=== PATIENT | male | born 1970 | race Caucasian/White ===

== ENCOUNTER 2019-07-16 01:08 | Outpatient (CLI) | payer BC, SELFPAY ==
[2019-07-16 07:36] LABS: HCT 46.6 % (40.0-50.0); HGB 15.9 g/dL (13.5-17.5); Mean Corp. HGB Concentration 34.1 g/dL (32.0-36.0); Mean Corpuscular Hemoglobin 31.4 pg (27.0-33.0); Mean Corpuscular Volume 92.1 fL (80-95); Mean Platelet Volume 10.2 fL (8.0-11.0); Platelet Count 301 x1000/uL (130-400); RBC 5.06 m/cumm (4.50-6.00); RBC Distribution Width 12.2 % (11.8-14.1); White Blood Cell Count 4.27 k/cumm (4.4-10.8)
[2019-07-16 09:10] LABS: ALT 23 U/L (16-63); AST 19 U/L (15-37); Albumin 4.1 g/dL (3.4-5.0); Alkaline Phosphatase 77 U/L (46-116); Anion Gap 7.2 mmol/L (3-11); BUN 12 mg/dL (7-18); Bilirubin, Total 0.5 mg/dL (0.2-1.0); CO2 29.8 mmol/L (21.0-32.0); CREATININE 0.85 mg/dL (0.70-1.30); Calcium 9.4 mg/dL (8.5-10.1); Chloride 104 mmol/L (98-107); Glucose 100 mg/dL (70-100); Potassium 4.7 mmol/L (3.5-5.1); Sodium 141 mmol/L (136-145); Total Protein 7.3 g/dL (6.4-8.2)
[2019-07-16 10:03] LABS: Cholesterol 258 mg/dL (50-200); HDL Cholesterol 49 mg/dL (40-60); LDL CHOLESTEROL 183 mg/dL (<100); Triglyceride 78 mg/dL (30-150)
[2019-07-17 09:39] LABS: PSA, Screening 0.3 ng/ml (0-3.5)
== END 2019-07-16 01:28 ==
PROVIDERS: PCP Nurse Practitioner; Visit Provider Surgery
DX: E78.5 Hyperlipidemia, unspecified (principal); G43.909 Migraine, unspecified, not intractable, without status migrainosus; Z12.5 Encounter for screening for malignant neoplasm of prostate; Z80.42 Family history of malignant neoplasm of prostate
CPT/HCPCS: 36415; 80053; 83721; 84153; 85027; 82465; 83718; 84478

== ENCOUNTER 2019-07-27 06:13 | Day surgery (SDC) | payer BC, SELFPAY ==
[2019-07-27 06:19] VITALS: BP 107/71; PULSE 74; RESP 16; TEMP 36.6; O2SAT 95
[2019-07-27] MEDS: Lactated Ringers 1,000 ML 80 ML IV (06:49)
--- NOTE | 2019-07-27 08:36 | W.COLOREPORT ---
Date of service: 07/27/19 Time of Service: 08:36 Colonoscopy Report Date of procedure: 07/27/19 Pre-op diagnosis general: CRC screen Post-op diagnosis procedure note: other (mod-severe diverticula) Procedure: colon screen Surgeon: Marta Mcguire Anesthesia proc note operative: GETA Estimated blood loss (mL): 0 Pathology: none sent Complications: None Disposition: same day Prep: Miralax/Dulcolax Retraction Time: 15 mins Procedure Description: After informed consent was obtained the patient was taken to the procedure room and placed in a left decubitous position. Monitors were applied and a time out was done. The patients name, date of , procedure, allergies to medications and metal in their body was reviewed. The patient was then sedated. Once sedated and comfortable a rectal exam was done. External exam was normal. Internal exam revealed a normal sphincter tone and no palpable masses. The scope was then introduced and retrofelexed. No internal hemorrhoids were identified. The scope was then advanced to the cecum w/out difficulty. The TI and appendiceal orifice were identified. The prep was good. The scope was then slowly retracted over 15 mins minutes back into the rectum. No polyps or AVMs were identified. He does have severe diverticular disease multiple large amount diverticula. These are confined to the sigmoid colon. There is no sign of active bleeding or infection at this time. The scope was removed and the patient was woken up and taken back to Same day surgery in stable condition. The patient tolerated the procedure well and there were no immediate complications. Follow up: The patient should follow up in 10 years unless they develop changes in bowel habits or other new gastrointestinal complaints.
[2019-07-27 08:57] VITALS: BP 110/76; PULSE 56; RESP 16; TEMP 36.3; O2SAT 96
== END 2019-07-27 09:10 | disposition home or self-care (01) ==
PROVIDERS: PCP Nurse Practitioner; Visit Provider Surgery
PROC: 0DJD8ZZ Inspection of Lower Intestinal Tract, Via Natural or Artificial Opening Endoscopic (ICD-10-PCS; CPT 45378; principal; 2019-07-27 07:30)
DX: Z12.11 Encounter for screening for malignant neoplasm of colon (principal); K57.30 Diverticulosis of large intestine without perforation or abscess without bleeding
CPT/HCPCS: 45378

== ENCOUNTER 2021-03-30 08:45 | Outpatient (REF) | payer BC, SELFPAY ==
[2021-03-30 19:21] LABS: HCT 47.4 % (40.0-50.0); HGB 15.7 g/dL (13.5-17.5); MCH 31.1 pg (27.0-33.0); MCHC 33.1 % (32.0-36.0); MCV 93.9 fL (80-95); MPV 10.8 fL (8.0-11.0); Platelet Count 304 10^3/uL (130-400); RBC 5.05 10^6/uL (4.36-5.78); RDW 11.9 % (11.8-14.1); RDW-SD 41.2 fL; WBC 4.75 10^3/uL (4.4-10.8)
[2021-03-30 19:40] LABS: ALT 32 U/L (16-63); AST 24 U/L (15-37); Albumin 4.2 g/dL (3.4-5.0); Alkaline Phosphatase 71 U/L (46-116); Anion Gap 7.5 mmol/L (3-11); BUN 19 mg/dL (7-18); Bilirubin, Total 0.5 mg/dL (0.2-1.0); CO2 29.5 mmol/L (21.0-32.0); CREATININE 0.8 mg/dL (0.70-1.30); Calcium 9.5 mg/dL (8.5-10.1); Calculated LDL 179 mg/dL (<100); Chloride 106 mmol/L (98-107); Cholesterol 244 mg/dL (<200); Glucose 93 mg/dL (74-106); HDL Cholesterol 45 mg/dL (40-60); Potassium 4.8 mmol/L (3.5-5.1); Sodium 143 mmol/L (136-145); Total Protein 7.2 g/dL (6.4-8.2); Triglyceride 103 mg/dL (<150)
== END 2021-03-30 08:46 | disposition home or self-care (01) ==
LOC: NCHCN 08:45
PROVIDERS: PCP Nurse Practitioner; Visit Provider Nurse Practitioner
DX: F32.9 Major depressive disorder, single episode, unspecified; E78.5 Hyperlipidemia, unspecified
CPT/HCPCS: 80053; 80061; 85027; 83735

== ENCOUNTER 2022-10-04 08:54 | Outpatient (REF) | payer BC, SELFPAY ==
[2022-10-04 15:56] LABS: Calculated LDL 195 mg/dL (<100); Cholesterol 273 mg/dL (<200); Glucose 97 mg/dL (74-106); HDL Cholesterol 57 mg/dL (40-60); Triglyceride 106 mg/dL (<150)
[2022-10-04 23:25] LABS: PSA, Screening 0.3 ng/mL (<=3.5)
== END 2022-10-04 08:55 | disposition home or self-care (01) ==
LOC: NCHCN 08:54
PROVIDERS: PCP Nurse Practitioner; Visit Provider Nurse Practitioner Family
DX: Z80.42 Family history of malignant neoplasm of prostate (principal); Z00.00 Encounter for general adult medical examination without abnormal findings; Z12.5 Encounter for screening for malignant neoplasm of prostate; E78.5 Hyperlipidemia, unspecified
CPT/HCPCS: 80061; 82947; 84153

== ENCOUNTER 2023-05-23 16:09 | Outpatient (REF) | payer BC, SELFPAY ==
[2023-05-23 19:24] LABS: ALT 35 U/L (16-63); AST 29 U/L (15-37); Creatine Kinase 155 U/L (39-308)
[2023-05-23 19:39] LABS: HDL Cholesterol 55 mg/dL (40-60); LDL CHOLESTEROL 122 mg/dL (<100)
== END 2023-05-23 16:10 | disposition home or self-care (01) ==
LOC: NCHCN 16:09
PROVIDERS: PCP Nurse Practitioner; Visit Provider Nurse Practitioner Family
DX: E78.5 Hyperlipidemia, unspecified (principal); F41.8 Other specified anxiety disorders
CPT/HCPCS: 82550; 83721; 83718; 84450; 84460

== ENCOUNTER 2023-10-01 14:39 | Outpatient (REF) | payer BC, SELFPAY ==
[2023-10-01 22:25] LABS: PSA, Screening 0.2 ng/mL (<=3.5)
== END 2023-10-01 14:40 | disposition home or self-care (01) ==
LOC: NCHCN 14:39
PROVIDERS: PCP Nurse Practitioner; Visit Provider Nurse Practitioner Family
DX: Z12.5 Encounter for screening for malignant neoplasm of prostate (principal); Z80.42 Family history of malignant neoplasm of prostate
CPT/HCPCS: 84153

== ENCOUNTER 2024-04-06 15:07 | Outpatient (REF) | payer BC, SELFPAY ==
[2024-04-06 20:16] LABS: ALT 57 U/L (16-63); AST 40 U/L (15-37); Albumin 4.2 g/dL (3.4-5.0); Alkaline Phosphatase 92 U/L (46-116); Anion Gap 5.5 mmol/L (3-11); BUN 18 mg/dL (7-18); Bilirubin, Total 0.24 mg/dL (0.2-1.0); CO2 30.5 mmol/L (21.0-32.0); CREATININE 1.1 mg/dL (0.70-1.30); Calcium 9.5 mg/dL (8.5-10.1); Chloride 105 mmol/L (98-107); Estimated GFR 78.79 (mL/min/1.73m2); Glucose 101 mg/dL (74-106); Potassium 4.8 mmol/L (3.5-5.1); Sodium 141 mmol/L (136-145); Total Protein 7.7 g/dL (6.4-8.2)
[2024-04-06 20:27] LABS: Hemoglobin A1C 5.7 % (<5.7)
== END 2024-04-06 15:08 | disposition home or self-care (01) ==
LOC: NCHCN 15:07
PROVIDERS: PCP Nurse Practitioner Family; Visit Provider Nurse Practitioner Family
DX: E78.5 Hyperlipidemia, unspecified (principal); Z13.1 Encounter for screening for diabetes mellitus
CPT/HCPCS: 80053; 83036

== ENCOUNTER 2024-10-12 18:11 | Outpatient (REF) | payer OTHER, SELFPAY ==
--- OUTSIDE RECORDS SUMMARY | 2024-10-12 18:17 | XMS_ITS | Encounter Summary ---
Author Organization [facility] Address [address] [place] [address] Care Team Providers Care Crane Engineer Name Role Phone Farzad Gautam MD Primary Care Provider [phone] Encounter Details Date Type Department Care Team (Late st Contact Info) Description 10/01/2023 Lab Requisition [facility] Pathology & Laboratory Medicine - [facility] [address], [place] [id number] Outr Resulting Lab, Provider Social History Tobacco Use Types Packs/Day Years Used Date Smoking Tobacco: Never Assessed Sex and Gender Information Value Date Recorded Sex Assigned at Not on file Legal Sex Male 18:20 EST Gender Identity Not on file Sexual Orientation Not on file documented as of this encounter Plan of Treatment Not on file documented as of this encounter Procedures Procedure Name Priority Date/Time Associated Diagnosis Comments PSA TOTAL, DIAGNOSTIC Routine 10/01/2023 8:10 EST documented in this encounter Results * PSA TOTAL, DIAGNOSTIC (10/01/2023 8:10 EST) PSA 0.2 <=3.5 ng/mL 10/01/2023 22:21 EST [facility] Blood VENOUS BLOOD / Unknown 10/01/2023 8:10 EST 10/01/2023 21:03 EST Narrative [facility] - 10/01/2023 22:21 EST NOTE: Serum PSA concentration should not be interpreted as absolute evidence for the presence or absence of malignant disease. Assayed on Siemens ADVIA Dexterraaur XPT using chemiluminescent technology.??Values obtained by using different assay methods cannot be used interchangeably. us Provider Outr Resulting Lab CHEMISTRY & BLOOD GA S ORDERABLES Final Result [facility] [address] [place] [address] documented in this encounter Visit Diagnoses Not on filedocumented in this encounter Care Teams Crane Engineer Relationship Specialty Start Date End Date Farzad Gautam MD [address] [place] [address] PCP - General 08/28/10 documented as of this encounter
--- OUTSIDE RECORDS SUMMARY | 2024-10-12 18:17 | XMS_ITS | Encounter Summary ---
Author Organization [facility] Address [facility] [place] [address] Care Team Providers Care Boat Officer Name Role Phone Jeanine Serna APRN Primary Care Provider Encounter Details Date Type Department Care Team (Late st Contact Info) Description 11/04/2018 External [place] [address] Provider, Scanning Social History Tobacco Use Types Packs/Day Years Used Date Smoking Tobacco: Never Smokeless Tobacco: Never Sex and Gender Information Value Date Recorded Sex Assigned at Not on file Gender Identity Not on file Sexual Orientation Not on file documented as of this encounter Plan of Treatment Not on file documented as of this encounter Procedures Procedure Name Priority Date/Time Associated Diagnosis Comments SURGICAL PATHOLOGY SCAN Routine 11/04/2018 documented in this encounter Results * Scan Doc: Surgical Pathology (11/04/2018) Historical Provider MD FARIA MGR SCAN EX T ORDR/RSLT documented in this encounter Visit Diagnoses Not on filedocumented in this encounter Care Teams Boat Officer Relationship Specialty Start Date End Date Jeanine Serna APRN [address] [place] [address] PCP - General Family Medicine 11/03/18 07/01/23 documented as of this encounter
--- OUTSIDE RECORDS SUMMARY | 2024-10-12 18:17 | XMS_ITS | Clinical Summary ---
Author Organization [facility] [place] [address] Care Team Providers Care Roller Man Name Role Phone Selin Knapp PIERCE Primary Care Provider [phone] Allergies No known active allergies Medications Medication Sig Dispensed Refills Start Date End Date Status loratadine (CLARITIN) 10 mg Tablet take 1 tablet by mouth once daily 0 10/13/2018 Active venlafaxine (EFFEXOR) 100 mg Tablet 0 08/09/2018 Active rosuvastatin (Crestor) 5 mg tablet Take 5 mg by mouth daily. 06/18/2023 Active FIBER, DEXTRIN, ORAL Take by mouth. Active pediatric multivit #34-FA 200 mcg Tablet, Chewable Take by mouth. Acti ve UNABLE TO FIND Mushroom gummy Active aspirin 81 mg chewable tablet Take 81 mg by mouth daily. Active Active Problems No known active problems Social History Tobacco Use Types Packs/Day Years Used Date Smoking Tobacco: Never Smokeless Tobacco: Never Sex and Gender Information Value Date Recorded Sex Assigned at Not on file Gender Identity Not on file Sexual Orientation Not on file Plan of Treatment Health Maintenance Due Date Last Done Comments CT Colonography 1968 Colonoscopy 1968 Colorectal Cancer Screening 1968 FIT DNA 1968 FIT 1968 Sigmoidoscopy (10 year) with FIT yearly 1968 Sigmoidoscopy 1968 HIV screen 02/04/1986 Hepatitis C Screening 02/04/1986 Hepatitis B vaccine (0-59 yrs) (1) 02/04/1987 Tetanus/Diphtheria/Pertussis Vaccines (1 - Tdap) 02/04 Zoster vaccine (1 of 2) 02/04/2018 Advance Directive 02/04/2023 Covid-19 Vaccine (1 - season) 2024 Influenza (Flu) vaccine (1 o f 1 - Influenza standard series) 05/31/2024 Care Teams Roller Man Relationship Specialty Start Date End Date Selin Knapp APRN PCP - General Family Medicine 07/02/23
--- OUTSIDE RECORDS SUMMARY | 2024-10-12 18:17 | XMS_ITS | Encounter Summary ---
Author Organization [facility] [place] [address] Care Team Providers Care Slubber Operator Name Role Phone Jeanine Serna APRN Primary Care Provider [phone] Reason for Visit * Reason Comments Follow-up Skin Check Encounter Details Date Type Department Care Team (Late st Contact Info) Description 11/03/2018 3:15 PM EST Office Visit Dermatology at [address] [phone] Shravan Boston MD [address] [facility] [place] [address] [place] (actinic keratosis); Chondrodermatitis nodularis helicis of right ear Social History Tobacco Use Types Packs/Day Years Used Date Smoking Tobacco: Never Smokeless Tobacco: Never Sex and Gender Information Value Date Recorded Sex Assigned at Not on file Gender Identity Not on file Sexual Orientation Not on file documented as of this encounter Progress Notes * Shravan Boston MD - 11/03/2018 3:15 PM EST Problem: 1. Right ear lesion 2. Right cheek lesion Maximo follows-up concerned about lesions present on his right cheek and right ear for some months now. The wound on his right helical rim is somewhat tender. One on his right cheek will occasionally bleed. When he shaves he cannot help but hit it. He has had a fair amount of sun exposure over the years. Physical examination reveals a pleasant 48-year-old gentleman who has a fleshy nodule extending anteriorly on the upper inner helical rim. It is 8 mm in diameter. It is consistent with CNH versus possible SCCA versus BCCA. He has an actinic keratosis on the right lateral cheek. Otherwise facial examination examination of his hands arms forearms chest and back is benign. 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 Discussed with patient the possibility of chondrodermatitis nodularis helicis and the underlyingetiology of this. 2. Discussed wound care after shave biopsy in light C&D 3. Try to keep pressure off of the site as it heals, as pressure usually seems to make it worse, and offloading pressure from the site, sleeping on his left side, will help to prevent its recurrence 4. Will notify patient of biopsy results when these are available within the next week. Actinic keratosis right cheek 1. LN 2 x 2 applied to single site Benign nevi back 1. Patient reassured about remainder benign skin examination benign nevi on back 2. No treatment necessary CC: Jeanine Serna APRN documented in this encounter Plan of Treatment Not on file documented as of this encounter Visit Diagnoses Diagnosis AK (actinic keratosis) Actinic keratosis Chondrodermatitis nodularis helicis of right ear documented in this encounter Care Teams Slubber Operator Relationship Specialty Start Date End Date Jeanine Serna APRN [address] [place] [address] PCP - General Family Medicine 11/03/18 07/01/23 documented as of this encounter
--- OUTSIDE RECORDS SUMMARY | 2024-10-12 18:17 | XMS_ITS | Encounter Summary ---
Author Organization [facility] Address [address] [place] [address] Care Team Providers Care Bologna Lacer Name Role Phone Unavailable Primary Care Provider Unavailabl e Encounter Details Date Type Department Care Team (Late st Contact Info) Description 08/23/2010 Results Only [facility] [place] [facility] [place] [place] [address] [place], [place] [phone] Erik Caldwell MD [address] [place] [id number] Social History Tobacco Use Types Packs/Day Years [...] Priority Date/Time Associated Diagnosis Comments SURGICAL PATHOLOGY Routine 08/23/2010 0:00 EST documented in this encounter Results * SURGICAL PATHOLOGY (08/23/2010 0:00 EST) Pathology Report: SURGICAL PATHOLOGY REPORT ? Reports generated via electronic interface contain original data; ? however they are lacking the format of the original report. ? Caution should be taken when reading/interpreti ng unformatted reports. ? Name: ? URIE, CIRA A ? Accession #: ? [id number] ? : ? 1970 (Age: 40) ??M ? Collect Date: ? 08/23/2010 ? Location: ? [facility] ? Receive Date: ? 08/23/2010 ? Provider: ERIK TIMA MD ? Copy to: MI VILLALTA MD ? Final Pathologic Diagnosis: ? A. ?Nasal turbinate, left, excision: ? 1. ?Bone fragments lined by chronically inflamed respiratory mucosa. ? B. ?Nasal turbinate, right, excision: ? 1. ?Bone fragments lined by chronically inflamed respiratory mucosa. ? C. ?Septal cartilage and bone, excision: ? 1. ?Bone and cartilage with no specific pathologic features. ??Gross ? only. ? Document reviewed and electronically signed by: ? ABDELSIMÓN RING MD ? Report ??Date: 08/28/2010 14:14 ? By the signature above, the attending physician certifies that he/she has ? personally conducted a gross and/or microscopic examination of the described ? specimens and rendered or confirmed the above diagnosis. ? Specimen(s) Received: ? A. ?Lt turbinate ? B. ? Rt turbinate ? C. ? Septal cartilage and bone ? Clinical History: ? DNS; B infer turbinate hypertrophy ? Gross Description: ? Received in formalin labelled Lefty, Cira and left turbinate are three ?? irregular and unoriented fragments of tissue that range from 0.8 x 0.6 x 0.5 cm to 1.9 x 0.9 x 0.8 cm. ??The fragments of tissue are largely surfaced by ? josue-son, smooth, focally hemorrhagic mucosa. ??Sectioning reveals a son, spongy cut surface, with foci of indwelling firm, bony tissue. ??Ophthalmic Asst sections are submitted as (A) following decalcification. ? Received in formalin labelled Cira Olea and right turbinate are two ? rectangular, unoriented pieces of tissue that measure 2.0 x 0.7 x 0.3 cm and 3.1 x 0.9 x 0.8 cm. ??The tissues are largely surfaced by son, focally hemorrhagic, ?? smooth to wrinkled mucosa. ??Sectioning reveals a son, spongy cut surface, with ?? focal areas of indwelling firm, bony tissue. ??Ophthalmic Asst sections are ? submitted as (B) following decalcification. ? Received in formalin labelled [place], Cira and septal cartilage and bone is a 3.0 x 2.2 x 0.6 cm aggregate of multiple irregular fragments of josue-white ? cartilaginous tissue admixed with scant fragments of firm, son, bony tissue. ??No masses or discrete lesions are identified. ??No sections are submitted. ??Gross ?? only. ??(Diana Casas)/hair ? End of Report ? [facility] 08/23/2010 08/23/2010 17: 42 EST us Erik Caldwell MD PATHOLOGY ORDERABLES Final Resul t [facility] [address] [place] [address] documented in this encounter Visit Diagnoses Not on filedocumented in this encounter
--- OUTSIDE RECORDS SUMMARY | 2024-10-12 18:17 | XMS_ITS | Encounter Summary ---
Author Organization [facility] Address [facility] [place] [address] Care Team Providers Care Property Developer Name Role Phone Jeanine Serna PIERCE Primary Care Provider [phone] Encounter Details Date Type Department Care Team (Latest Contact Info) Description 11/03/2018 9:23 PM EST - 11/03/2018 11:59 PM EST Hospital [place] [id number] Discharge Disposition: Home Social History Tobacco Use Types Packs/Day Years Used Date Smoking Tobacco: Never Smokeless Tobacco: Never Sex and Gender Information Value Date Recorded Sex Assigned at Not on file Gender Identity Not on file Sexual Orientation Not on file documented as of this encounter Medications at Time of Discharge Medication Sig Dispensed Refills Start Date End Date loratadine (CLARITIN) 10 mg Tablet take 1 tablet by mouth once daily 0 10/13/2018 venlafaxine (EFFEXOR) 100 mg Tablet 0 08/09/2018 amitriptyline (ELAVIL) 10 mg Tablet take 1 tablet by mouth at bedtime if needed 0 09/11/2018 07/02/2023 documented as of this encounter Plan of Treatment Not on file documented as of this encounter Procedures Procedure Name Priority Date/Time Associated Diagnosis Comments SURGICAL PATHOLOGY REPORT Routine 11/03/2018 12:00 PM EST documented in this encounter Results * Surgical Pathology Report (11/03/2018 12:00 PM EST) Final Diagnosis [id number] ? Location: [facility] The signing pathologist has (i) examined the relevant preparation(s) for the specimen(s) and (ii) rendered or confirmed the diagnosis(es). . ?Surgical Pathology DIAGNOSIS Skin, right upper inner helical rim, shave biopsy: - ??Chondrodermati tis nodularis helicis Electronically signed by: ??Donovan BARRERA, PhD, Radha Verified: ??11/04/2018 ?Dermatopatholo gist Performed at: ??[facility] [place], [place], [place] CLINICAL INFORMATION Specimen Submitted: A - Right upper inner helical rim, shave Clinical History and Diagnosis: Growing nodule; CNH R/O BCCa vs SCCa Referring Identifier: ?(not provided) SPECIMEN PROCESSING A - Labeled/Fixative : Patient demographics, formalin. Quantity/Size: ??Single, 1.0 x 0.6 x 0.2 cm. Tissue Description: Shave of rubbery son skin. Sections/Process ing: Inked, quadrisected and entirely submitted in 1 cassette labeled A1. ??dior 11/04/2018 2:13 PM EST [facility] SPECIMEN FROM SKIN / Unknown 11/03/2018 12:00 PM EST 11/03/2018 12:00 PM EST Shravan Boston MD PATHOLOGY/CYTOLOGY O CARMINE [facility] [place] [address] documented in this encounter Visit Diagnoses Not on filedocumented in this encounter Care Teams Property Developer Relationship Specialty Start Date End Date Jeanine Srena, HOT FRAME TENDER [address] [place] [address] PCP - General Family Medicine 11/03/18 07/01/23 documented as of this encounter
--- OUTSIDE RECORDS SUMMARY | 2024-10-12 18:17 | XMS_ITS | Encounter Summary ---
Author Organization [facility] Address [address] [place] [address] Care Team Providers Care Pony Edger Name Role Phone Unavailable Primary Care Provider Unavailabl e Encounter Details Date Type Department Care Team (Latest Contact Info) Description 12/14/2002 12:42 EST Hospital Encounter [facility] [place] [id number] [place] [address] Tamir Vasquez III, ANP [address] [place] [address] Discharge Disposition: Auto Discharge Social History Tobacco Use Types Packs/Day Years Used Date Smoking Tobacco: Never Assessed Sex and Gender Information Value Date Recorded Sex Assigned at Not on file Legal Sex Male 18:20 EST Gender Identity Not on file Sexual Orientation Not on file documented as of this encounter Discharge Disposition Disposition Code Departure Means Destination Auto Discharge documented in this encounter Plan of Treatment Not on file documented as of this encounter Visit Diagnoses Not on filedocumented in this encounter
--- OUTSIDE RECORDS SUMMARY | 2024-10-12 18:17 | XMS_ITS | Encounter Summary ---
Author Organization [facility] Address [address] [place] [address] Care Team Providers Care Youth Support Worker Name Role Phone Farzad Gautam MD Primary Care Provider [phone] Encounter Details Date Type Department Care Team (Late st Contact Info) Description 10/04/2022 Lab Requisition [facility] Pathology & Laboratory Medicine - [facility] [address], [place] [id number] Outr Resulting Lab, Provider Social History Tobacco [...] Associated Diagnosis Comments PSA TOTAL, DIAGNOSTIC Routine 10/04/2022 7:40 EST documented in this encounter Results * PSA TOTAL, DIAGNOSTIC (10/04/2022 7:40 EST) PSA 0.3 <=3.5 ng/mL 10/04/2022 23:21 EST [facility] Blood VENOUS BLOOD / Unknown 10/04/2022 7:40 EST 10/04/2022 21:34 EST Narrative [facility] - 10/04/2022 23:21 EST NOTE: Serum PSA concentration should not be interpreted as absolute evidence for the presence or absence of malignant disease. Assayed on Siemens ADVIA Conductoraur XPT using chemiluminescent technology.??Values obtained by using different assay methods cannot be used interchangeably. us Provider Outr Resulting Lab CHEMISTRY & BLOOD GA S ORDERABLES Final Result [facility] [address] [place] [address] documented in this encounter Visit Diagnoses Not on filedocumented in this encounter Care Teams Youth Support Worker Relationship Specialty Start Date End Date Farzad Gautam MD [address] [place] [address] PCP - General 08/28/10 documented as of this encounter
--- OUTSIDE RECORDS SUMMARY | 2024-10-12 18:17 | XMS_ITS | Clinical Summary ---
Author Organization [facility] Address [address] [place] [address] Care Team Providers Care Property Management Bookkeeper Name Role Phone Farzad Gautam MD Primary Care Provider [phone] Social History Tobacco Use Types Packs/Day Years Used Date Smoking Tobacco: Never Assessed Sex and Gender Information Value Date Recorded Sex Assigned at Not on file Legal Sex Male 18:20 EST Gender Identity Not on file Sexual Orientation Not on file Plan of Treatment Health Maintenance Due Date Last Done Comments Hepatitis C Screen 1970 Hepatitis B Vaccine (1 of 3 - 19+ 3-dose series) 02/04 COVID-19 Vaccine ( season) 2024 Care Teams Property Management Bookkeeper Relationship Specialty Start Date End Date Farzad Gautam MD [address] [place] [address] PCP - General 08/28/10
--- OUTSIDE RECORDS SUMMARY | 2024-10-12 18:17 | XMS_ITS | Encounter Summary ---
[place] [address] Care Team Providers Care Php Wordpress Developer Name Role Phone Selin Knapp APRN Primary Care Provider [phone] Encounter Details Date Type Department Care Team (Latest Contact Info) Description 07/02/2023 Travel Social History Tobacco Use Types Packs/Day Years [...] on filedocumented in this encounter Care Teams Php Wordpress Developer Relationship Specialty Start Date End Date Selin Knapp APRN PCP - General Family Medicine 07/02/23 documented as of this encounter
--- OUTSIDE RECORDS SUMMARY | 2024-10-12 18:17 | XMS_ITS | Encounter Summary ---
Author Organization [facility] Address [address] [place] [address] Care Team Providers Care Mule Developer Name Role Phone Unavailable Primary Care Provider Unavailabl e Encounter Details Date Type Department Care Team (Late st Contact Info) Description 12/22/2002 18:06 EST Hospital Encounter [facility] [address] [place] [address] Tamir Vasquez III, ANP [address] [place] [address] Social History Tobacco Use Types Packs/Day Years [...]
--- OUTSIDE RECORDS SUMMARY | 2024-10-12 18:17 | XMS_ITS | Encounter Summary ---
Author Organization [facility] [address] Care Team Providers Care Storage Brine Worker Name Role Phone Selin Knapp RETIREMENT [employer] Primary Care Provider [phone] Reason for Visit * Reason Comments Follow-up * Consultation (Routine) - Closed Specialty Diagnoses / Procedures Referred By Radha clark Referred To Contact Dermatology Diagnoses Melanocytic nevi, unspecified Selin Knapp, RETIREMENT ACTU[employer] [address] [place] [address] Shravan Boston MD [address] [place] [address], [facility] [place] [address] Referral ID Status Reason Start Date Expiration Date V isits Requested Visits Authorized [id number] Closed Consult, Test & Treat PCP Updated and/or Approved 04/04/2023 04/03/2024 1 1 Encounter Details Date Type Department Care Team (Late st Contact Info) Description 07/02/2023 3:45 PM EDT Office Visit Dermatology at [address] [id number] Shravan Boston MD [address] [place] [address], [facility] [place] [address] [facility] Social History Tobacco Use Types Packs/Day Years Used Date Smoking Tobacco: Never Smokeless Tobacco: Never Sex and Gender Information Value Date Recorded Sex Assigned at Not on file Gender Identity Not on file Sexual Orientation Not on file documented as of this encounter Progress Notes * Shravan Boston MD - 07/02/2023 3:45 PM EDT Problem: 1. Right holden lesion 2. Exposed skin examination 3. 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 Is concerned about a lesion on the right anterior holden that is occasionally somewhat sore. He does not recall any trauma to the site. He has not bled scabbed or crusted. Physical examination reveals a pleasant 53-year-old gentleman who has an area of slight subcutaneous atrophy, perhaps a site of past pen subcutaneous panniculitis, which currently is not red and not overly painful to palpation. No overlying discoloration of the site. He has benign examination of the face without any active CNH. Has no actinic keratoses. Assessment plan: Benign examination right lower extremity 1. The site may represent a site of past subcutaneous panniculitis 2. No evidence of active inflammation. Appears to have resolved on its own. 3. Patient reassured this is not cancerous or worrisome. 4. Mild atrophy of site will likely remain History of CNH right superior helical rim 1. Currently inactive 2. Continue to try to keep pressure off of this side when sleeping 3. Encouraged sun avoidance precautions which patient does try to follow. CC: Selin Knapp APRN documented in this encounter Plan of Treatment Not on file documented as of this encounter Visit Diagnoses Diagnosis Nevus Benign neoplasm of skin, site unspecified documented in this encounter Care Teams Storage Brine Worker Relationship Specialty Start Date End Date Selin Knapp APRN PCP - General Family Medicine 07/02/23 documented as of this encounter
--- OUTSIDE RECORDS SUMMARY | 2024-10-12 18:17 | XMS_ITS | Referral Summary ---
Author Organization [facility] Address [address] [place] [address] Care Team Providers Care Center [facility] Cashier Name Role Phone Farzad Gautam MD Primary Care Provider [phone] Social History Tobacco Use Types Packs/Day Years Used Date Smoking Tobacco: Never Assessed Sex and Gender Information Value Date Recorded Sex Assigned at Not on file Legal Sex Male 18:20 EST Gender Identity Not on file Sexual Orientation Not on file Plan of Treatment Not on file Care Teams Center [facility] Cashier Relationship Specialty Start Date End Date Farzad Gautam MD [address] [place] [id number] PCP - General 08/28/10
[2024-10-12 19:31] LABS: Hemoglobin A1C 5.5 % (<5.7)
[2024-10-12 19:36] LABS: ALT 25 U/L (16-63); AST 25 U/L (15-37); Albumin 3.9 g/dL (3.4-5.0); Alkaline Phosphatase 102 U/L (46-116); Anion Gap 8.3 mmol/L (3-11); BUN 20 mg/dL (7-18); Bilirubin, Total 0.22 mg/dL (0.2-1.0); CO2 27.7 mmol/L (21.0-32.0); CREATININE 0.8 mg/dL (0.70-1.30); Calcium 9.5 mg/dL (8.5-10.1); Calculated LDL 113 mg/dL (<100); Chloride 106 mmol/L (98-107); Cholesterol 193 mg/dL (<200); Estimated GFR 103.87 (mL/min/1.73m2); Glucose 101 mg/dL (74-106); HDL Cholesterol 46 mg/dL (40-60); Potassium 4.1 mmol/L (3.5-5.1); Sodium 142 mmol/L (136-145); Total Protein 7.6 g/dL (6.4-8.2); Triglyceride 171 mg/dL (<150)
[2024-10-13 18:37] LABS: PSA, Screening 0.3 ng/mL (<=3.5)
== END 2024-10-12 18:12 | disposition home or self-care (01) ==
LOC: NCHCN 18:11
PROVIDERS: PCP Nurse Practitioner Family; Visit Provider Nurse Practitioner Family
DX: Z12.5 Encounter for screening for malignant neoplasm of prostate (principal); Z13.1 Encounter for screening for diabetes mellitus; Z00.00 Encounter for general adult medical examination without abnormal findings
CPT/HCPCS: 80053; 80061; 84153; 83036